=== PATIENT | female | born 1985 | race Caucasian/White ===

== ENCOUNTER 2024-11-11 11:50 | Outpatient (AMB) | payer OTHER, SELFPAY ==
--- NOTE | 2024-11-11 12:06 | MHC.OFFVIS ---
Intake Visit Reasons: 3 Months / migranes Allergies No Known Allergies Allergy (Verified 09/16/24 13:49) HPI Comments Details: 38 yo RH woman with migraine with migraine without aura, migraine equivalent syndrome type of symptoms, and restless legs syndrome. She was initially seen in June of 2024 with following description of symptoms: a. Dizziness: IT started a few months ago. It was happening almost daily. It was triggered by bending, turning, or getting up from sitting position. It caused a sense dizzinss like she was going to lose her balance. It helped by closing eyes. There was no associated pain, or confusion. No associated ear or eye symptoms.?b. Headaches: They were happening every day, all the time, usually worse in am, lasting hours to all day. OTC meds or meloxicam helped. In Dec, she was having severe pounding headache when she had right sided numbness and unsteadiness. She went to [facility] where she was admitted and had tests done. No diagnosis was made. She is presenting with management of idiopathic stabbing headaches and severe anxiety. She reports spontaneous episodes of sharp, needle-like headaches occurring suddenly, with durations often brief but intensely painful, exacerbated by stress. Previously, she took Depakote alongside other medications for bipolar disorder but discontinued due to significant weight gain. She recently increased the dosage of her current medication, which she believes has somewhat improved her headache symptoms over the last week. Her PTSD and anxiety severely impact her daily functions, particularly increasing her stress and headache frequency during travel. She experiences dizziness alongside her headaches. She is currently on propranolol for palpitations but has not used verapamil or received headache injections previously. [facility] Medical History (Updated 11/11/24 @ 12:17 by Darshan Barr MD) Bipolar disorder PTSD (post-traumatic stress disorder) Type II diabetes mellitus GERD (gastroesophageal reflux disease) Migraine equivalent syndrome Idiopathic peripheral neuropathy Carpal tunnel syndrome, bilateral upper limbs Insomnia RLS (restless legs syndrome) Depression with anxiety CE (obstructive sleep apnea) Obesity Migraine without aura Family History (Updated 09/16/24 @ 13:48 by Ana Jalloh MA) Father Headache Review of Systems Const Details: - Neurological: Reports chronic stabbing headaches, dizziness. - Psychiatric: Reports severe anxiety, PTSD. Physical Exam Neuro Other: Mental Status: Alert and oriented to person, place, and time. Normal attention. Normal spontaneous speech, fluency, and comprehension. No obvious issues with mood and memory. Affect is appropriate. Cranial Nerves: CN II: Visual jarvis full to confrontation, visual acuity intact. CN III, IV, : Pupils equal, round, reactive to light and accommodation. Extraocular movements are normal. CN V: Facial sensation is normal. CN VII: Facial movements symmetrical. CN VIII: Hearing intact to bedside conversation is normal. CN IX, X: Palate elevates symmetrically. CN XI: Shoulder shrug and head turn symmetrical. CN XII: Tongue midline without atrophy or fasciculations. Motor: Bulk and tone normal in all extremities. No significant muscle weakness in arms and legs. No drift. Reflexes: Deep tendon reflexes 2+ and symmetric. Plantar response down-going bilaterally. Coordination: Cudtlx-qd-vozx and eepd-qt-cxaj testing normal. No dysmetria. Gait and Station: No obvious gait abnormality. No ataxia or instability. Extrapyramidal: Full facial expressions and blinking. No rigidity. Movements are appropriate with no tremor or abnormality. Speech: Normal; no dysarthria or tremor. Assessment & Plan Assessment & Plan (1) Migraine without aura: Comment: Meds tried for migraine: Topiramate, amitriptyline, propranolol, Depakote (weight gain), Verapamil contraindicated due to propranolol she is taking Code(s): G43.009 - Migraine without aura, not intractable, without status migrainosus Category: Medical Qualifiers: Status migrainosus presence: without status migrainosus Intractability: not intractable Qualified Code(s): G43.009 - Migraine without aura, not intractable, without status migrainosus (2) RLS (restless legs syndrome): Code(s): G25.81 - Restless legs syndrome Category: Medical (3) Migraine equivalent syndrome: Code(s): G43.109 - Migraine with aura, not intractable, without status migrainosus Category: Medical (4) Idiopathic stabbing headache: Code(s): G44.85 - Primary stabbing headache Category: Medical Plan Impression: a: Migraine b: RLS Rec: a: DC Depakote b: Emgality 120mg once a month c: Increase ropinorole to 1mg at night d: If her insurance would not cover Emgality, 1 option would be to stopped propranolol take verapamil 122-40 mg Medications: New galcanezumab-gnlm (Emgality Pen) 120 mg subcut QMONTH 1 mL 2RF ropinirole administer 1-3 hours before bedtime 1 mg PO BEDTIME 90 tabs 0RF Discontinued ropinirole Discontinued Reason: Doctor's Order 0.5 mg PO BEDTIME 90 tabs 1RF Coding Level of Care Code Est Pt Level 4 (66238) Diagnoses Migraine without aura and without status migrainosus, not intractable G43.009 Status migrainosus presence: without status migrainosus Intractability: not intractable RLS (restless legs syndrome) G25.81 Migraine equivalent syndrome G43.109 Idiopathic stabbing headache G44.85
--- OUTSIDE RECORDS SUMMARY | 2024-11-11 14:23 | XMS_ITS | Encounter Summary ---
Author Organization [facility] Address [address] [place] [address] Care Team Providers Care Mill Roll Operator Name Role Phone John Liang MD Primary Care Provider [phone] Encounter Details Date Type Department Care Team ([facility] Contact Info) Description 11/06/2024 Results Follow-Up Internal Medicine - [place] [address] [place] [id number] Sarah Bowles MA Social History Tobacco Use Types Packs/Day Years Used Date Smoking Tobacco: Every Day Cigarettes 0.5 26.7 Started: 03/02/1998 Smokeless Tobacco: Never Alcohol Use Standard Drinks/Week Comments No 0 (1 standard drink = 0.6 oz pur e alcohol) Housing Instability Answer Date Recorde d Are you worried that in the next 2 months you may not have stable housing? No 04/26/2024 Food Access & Nutrition Answer Date Rec orded Do you have access to a vari ety of food including fruits and vegetables? Yes 04/26/2024 Access to Healthcare Answer Date Record ed Within the last 3 months, ho w many times did you visit the emergency department for your medical care? 0 04/26/2024 Health Literacy Answer Date Recorded How often do you need to hav e someone help you when you read instructions, pamphlets, or other written material from your doctor or pharmacy? Sometimes 04/26/2024 Caregiver: How often do you need to have someone help you when you read instructions, pamphlets, or other written material from your doctor or pharmacy? Not on file 04/26/2024 Financial Risk Answer Date Recorded How hard is it for you to pa y for the very basics like food, housing, medical care, and air conditioning / heating? Very hard 04/26/2024 Transportation Answer Date Recorded Has the lack of transportati on kept you from meetings, work, or from getting things needed for daily living? Yes Has the lack of transportati on kept you from medical appointments or from getting medications? Yes 04/26/2024 Social Isolation Answer Date Recorded How often do you feel lonely or isolated from th ose around you? Never 04/26/2024 Food Risk Answer Date Recorded Within the past 12 months we worried whether our food would run out before we got money to buy more. Sometimes true 025 Within the past 12 months th e food we bought just didn't last and we didn't have money to get more. Never true 04/26/2024 Dependent Care Answer Date Recorded Do you need help finding or paying for care for your loved ones. For example, child neurologist or elderly care for an older adult? No 04/26/2024 Education Answer Date Recorded Do you think completing more education or training, like finishing a GED, going to college, or learning a trade, would be helpful for you? No 04/26/2024 Employment and Income Answer Date Recor ded During the last four weeks, have you been actively looking for work? No 04/26/2024 Living Situation Answer Date Recorded What is your living situation? Unrecognized valu e 04/26/2024 Comments Unknown Sex and Gender Information Value Date Recorded Sex Assigned at Not on file Legal Sex Female 8:37 AM EST Gender Identity Not on file Sexual Orientation Not on file documented as of this encounter Plan of Treatment Not on file documented as of this encounter Visit Diagnoses Not on filedocumented in this encounter Additional Health Concerns Assessment Noted Time PHQ-9 Depression Total Score: 17 025 8:46 AM EDT documented as of this encounter Care Teams Mill Roll Operator Relationship Specialty Start Date End Date John Liang MD [address] [facility] [address] [place] [address] PCP - General 06/02/22 documented as of this encounter
--- OUTSIDE RECORDS SUMMARY | 2024-11-11 14:23 | XMS_ITS | Clinical Summary ---
Author Organization [address] [place] [address] [place] [id number] Phone Care Team Providers Care Bus Starter Name Role Phone John Liang MD Primary Care Provider [phone] Allergies Active Allergy Reactions Criticality Noted Date Comments Azithromycin GI intolerance 12/21/2023 Medications FREESTYLE LANCETS [facility] Use one lancet to check blood sugar twice a day 01/15/20 22 Active fluticasone propionate (FLONASE) 50 mcg/actuation nasal spray Amagon twice in each nostril daily. 01/11/20 22 Active cholecalciferol (VITAMIN D-3) 50 mcg (2,000 unit) capsule Take 1 capsule (2,000 Units total) by mouth. 08/29/19 24 Active medical supply, miscellaneous (MISCELLANEOUS MEDICAL SUPPLY [facility]) To take sugars twice daily 01/11/20 22 Active blood-glucose meter kit Use one device to check blood sugar twice a day 01/15/20 22 Active blood sugar diagnostic (FreeStyle Lite Strips) test strip USE DIRECTED TO CHECK BLOOD SUGAR TWICE DAILY 08/02/19 23 Active ibuprofen (ADVIL ORAL) Take by mouth as needed. Active Autolet (Accu-Chek Soft Dev Lancets) lancing device To take sugars twice daily 01/11/20 22 Active inhaler, assist devices (BREATHERITE VALVED MDI CHAMBER [facility]) 1 Each by Does not apply route as needed for Other (to use with rescue inhaler). 10/27/19 22 Active albuterol HFA (PROAIR HFA ; PROVENTIL HFA ; VENTOLIN HFA) 90 mcg/actuation inhalerIndicatio ns:Mild intermittent asthma without complication,Pal pitations,Type 2 diabetes mellitus with obesity Inhale 2 puffs by mouth every 4 (four) hours if needed for wheezing. 6.7 g 04/27/19 25 Active aspirin 81 mg EC tablet Take 1 tablet (81 mg total) by mouth 1 (one) time each day. 30 tablet 04/27/192025 Active Additional Information Patient not taking.Reported on 06/08/2024 fluconazole (DIFLUCAN) 150 mg tablet Take 1 tablet by mouth once. Take second tablet 3 days later if symptoms persist. 2 tablet 06/09/19 25 Active propranoloL (INDERAL) 40 mg tablet TAKE 1 TABLET BY MOUTH TWICE A DAY 180 tablet 10/25/19 25 Active atorvastatin (LIPITOR) 10 mg tablet TAKE 1 TABLET BY MOUTH EVERY DAY 90 tablet 10/25/19 25 Active fluticasone-salm eterol (Advair Diskus) 250-50 mcg/dose diskus inhaler Inhale 1 puff by mouth 2 (two) times a day. RINSE MOUTH AFTER USE 60 each 3 10/29/19 25 Active fluticasone-salm eterol (ADVAIR DISKUS) 250-50 mcg/dose diskus inhaler Inhale 1 puff by mouth 2 (two) times a day. Rinse mouth with water after use to reduce aftertaste and incidence of candidiasis. Do not swallow. 1 each 04/27/19 25 2024 Discontinued omeprazole (PriLOSEC) [address] capsule Take 1 capsule (20 mg total) by mouth 1 (one) time each day. 90 each 04/27/19 25 2024 propranoloL (INDERAL) 40 mg tablet Take 1 tablet (40 mg total) by mouth 2 (two) times a day. 60 each 04/27/19 25 2024 Discontinued atorvastatin (LIPITOR) 10 mg tablet TAKE 1 TABLET BY MOUTH EVERY DAY 90 tablet 07/27/19 25 2024 Discontinued Active Problems Problem Noted Date Diagnosed Date Atypical chest pain 10/13/2023 Overview (01/16/2024): Last Assessment & Plan: Sounds noncardiac in nature. Again ETT for restratification. Dyspnea on effort 10/13/2023 Overview (01/16/2024): Last Assessment & Plan: Likely multifactorial. Exercise tolerance test to assess functional capacity. If normal, would recommend a graduated exercise program. Palpitations 10/06/2023 Overview (01/16/2024): - Holter monitors in 2016, 2021, and more recently in March 2023 were unremarkable Last Assessment & Plan: My suspicion is that this is subjective awareness of sinus tachycardia which is likely due to a combination of factors including ongoing tobacco use, deconditioning, possible contribution from anxiety since some of her palpitation symptoms tend to be triggered by stress. Given family history, we are setting her up for an exercise tolerance test for restratification but ultimately, there is no magic fix for any of this. I reviewed that it can often take a long time with dedicated effort to try and improve conditioning. Ultimately, would recommend discontinuation entirely of tobacco use and marijuana use. As a trial, she could even try weaning herself off of caffeine just to reestablish a baseline of her symptoms. Would also recommend regular aerobic exercise. However, I think it would be fine to wait until after the stress test to start an exercise program. COVID-19 10/25/2021 Overview (01/16/2024): First Dx: 02/19/2020 Vitamin D deficiency 07/22/2020 Hyperlipidemia 04/29/2020 Overview (01/16/2024): Last Assessment & Plan: Although I have low suspicion that her current symptoms are cardiac in nature given relatively young age, and atypical history, she is at risk for future cardiovascular events over her lifetime. Her 10-year risk is probably still reasonably low though with smoking, it can be unpredictable. However, I reviewed that her risk factors are entirely reversible at this point. However she needs to stop smoking, stop using marijuana, focus on diet and exercise in a more structured way. I do not feel strongly about continuing statins at this point-especially if they are causing any sort of side effect but ideally, should try to follow a Mediterranean style diet. There seem to be social/socioeconomic factors that prevent her from accessing healthy foods. May need to consider use of food pantry's or other resources in the community. 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 ([facility] V24) 12/14/2018 PTSD (post-traumatic stress disorder) 12/14/2018 Encounters Date Type Department Care Team Description 11/06/2024 Results Follow-Up Internal Medicine - [address] [place] [address] Sarah Bowles MA from Last 3 Months Immunizations Immunization Administration Dates Next Due Influenza Quadravalent, MDCK , 0.5ml, preservative free (Flucelvax) 6mo and older 03/02/2020 Pneumococcal polysaccharide 23 valent (Pneumovax 23) 2yo and older 03/02/2020 Surgical History Surgery Date Site/Laterality Comments OTHER SURGICAL HISTORY PROCEDURE: DENIES PREVIOUS SURGERY Medical History Medical History Date Comments Mild intermittent asthma, uncomplicated DX:Mild intermittent asthma, uncomplicated Family History Medical History Relation Name Comments Other: luiza Brother 1 No Known Problems Brother 2 Arthritis Father COPD Father Heart attack Father at 58 Heart failure Father Hypertension Father Other: TIA Father Sleep apnea Father CABG Father's side Heart attack Father's side Heart attack Grandparent Paternal Grandfather Heart failure Maternal Grandfather Lung cancer Maternal Grandfather stomach cancer; SCC Lung cancer Maternal Grandmother Hypertension Mother Ovarian cancer Other Grand mother Relation Name Status Comments Brother 1 Alive Brother 2 Alive Father Father's side Alive Grandparent Paternal Grandfather Maternal Grandfather Maternal Grandmother Mother Other Alive The patient has chosen to decline gentic testing on 06/2020 Social History Tobacco Use Types Packs/Day Years [...] for your loved ones. For example, child care sitter or elderly care for an older adult? [...] on file Sexual Orientation Not on file Obstetrics History Last Filed Vital Signs Vital Sign Reading Time Taken Comments Blood Pressure 138/82 06/08/2024 1:04 PM EDT Pulse 92 06/08/2024 1:04 PM EDT Temperature 36.3 C (97.4 F) 06/08/2024 1:04 PM EDT Respiratory Rate - - Oxygen Saturation 98% 06/08/2024 1:04 PM EDT Inhaled Oxygen Concentration - - Weight 93.3 kg (205 lb 11.2 oz) 025 10:17 AM EDT Height 152.4 cm (5') 03/18/2024 10:00 AM EST Body Mass Index 40.17 03/18/2024 10:00 AM EST Plan of Treatment Health Maintenance Due Date Last Done Comments Breast Cancer Screening 1984 Diabetes: Annual Foot Exam 1994 Hepatitis B Vaccines (1 of 3 - 19+ 3-dose series) 11/10/2003 Cervical Cancer Screening: P ap Smear 2005 HPV Vaccines (1 - 3-dose SCD M series) 11/10/2011 Pneumococcal Vaccine: Pediatrics (0 to 5 Years) and At-Risk Patients (6 to 49 Years) (2 of 2 - PCV) 03/02/2021 03/02/2020 HIV Screening 01/15/2022 Hepatitis C Screening 01/15/2022 Diabetes: Annual Urine Albumin-Creatinine Ratio (uACR) 06/03/2023 06/02/2022 Diabetes: Annual Retina Eye Exam 01/18/2024 01/17/2023 Diabetes: Blood Sugar Contro l Test (HGBA1C) 01/23/2024 07/24/2023, 07/24/2023 Diabetes: Annual GFR (Glomerular Filtration Rate) 04/23/2024 04/24/2023 COVID-19 Vaccine (2024-2 6 season) 2024 10/02/2021, 07/02/2020, 06/04/2020 Influenza Vaccine (#1) 2024 03/02/2020 Social Influencers of Health Screening 04/26/2025 04/26/2024 DTaP,Tdap,and Td Vaccines (3 - Td or Tdap) 11/23/2027 11/22/2017, 01/03/2012 Cholesterol Screening (Lipid Panel) 07/23/2028 07/24/2023, 07/24/2023 RSV Immunization Adult Patients (1 - 1-dose 75+ series) 11/10/2059 Depression Screening Completed 04/26/2024 HIB Vaccines Aged Out No longer eligi ble based on patient's age to complete this topic Hepatitis A Vaccines Aged Out No long er eligible based on patient's age to complete this topic IPV Vaccines Aged Out No longer eligi ble based on patient's age to complete this topic MMR Vaccines Aged Out No longer eligi ble based on patient's age to complete this topic Meningococcal ACWY Vaccine Aged Out N o longer eligible based on patient's age to complete this topic Meningococcal B Vaccine Aged Out No l onger eligible based on patient's age to complete this topic RSV Immunization Patients Under 20 months Aged Out No longer eligible b ased on patient's age to complete this topic Varicella Vaccines Aged Out No longer eligible based on patient's age to complete this topic Procedures Procedure Name Priority Date/Time Associated Diagnosis Comments THYROID STIMULATING HORMONE Routine 10/17/2024 11:48 AM EDT Mild intermittent asthma without complication Palpitations Type 2 diabetes mellitus with obesity (CMS/HCC V24, CMS/[facility] V28) CBC WITH AUTO DIFFERENTIAL Routine 10/17/2024 11:48 AM EDT Mild intermittent asthma without complication Palpitations Type 2 diabetes mellitus with obesity (CMS/HCC V24, CMS/HCC V28) CBC AND DIFFERENTIAL Routine 10/17/2024 11:48 AM EDT Mild intermittent asthma without complication Palpitations Type 2 diabetes mellitus with obesity (CMS/HCC V24, CMS/[facility] V28) VITAMIN D 25 HYDROXY Routine 10/17/2024 11:48 AM EDT Mild intermittent asthma without complication Palpitations Type 2 diabetes mellitus with obesity (CMS/[facility] V24, [facility] V28) Brain TIA Fibromyalgia HEMOGLOBIN A1C Routine 07/24/2023 LIPID PANEL Routine 07/24/2023 ANNUAL BMP BLOOD TEST Routine 04/24/2023 DIABETES EYE EXAM Routine 01/17/2023 URINE ALBUMIN CREATININE RATIO Routine 06/02/2022 from Last 3 Months or Most Recently Relevant to Health Maintenance Results * (ABNORMAL) CBC auto differential (10/17/2024 11:48 AM EDT) WBC 8.7 4.8 - 10.8 K/mcL LAB HEMETOLOGY METHOD 10/17/2024 2:20 PM EDT [facility] RBC 5.10(H) 3.80 - 4.80 M/mcL LAB HEMETOLOGY METHOD 10/17/2024 2:20 PM EDT [facility] Hemoglobin 14.8 11.5 - 16.0 g/dL LAB HEMETOLOGY METHOD 10/17/2024 2:20 PM EDT [facility] Hematocrit 44.0 35.0 - 47.0 % LAB HEMETOLOGY METHOD 10/17/2024 2:20 PM EDT [facility] MCV 86.4 79.0 - 98.0 FL LAB HEMETOLOGY METHOD 10/17/2024 2:20 PM EDT [facility] MCH 29.1 27.0 - 32.0 pcg LAB HEMETOLOGY METHOD 10/17[facility]24 [facility] MCHC 33.6 32.0 - 37.0 g/dL LAB HEMETOLOGY METHOD 10/17/2024 2[facility] RDW 12.9 11.0 - 15.0 % LAB HEMETOLOGY METHOD 10/17/2024 2:20 PM EDT [facility] Platelets 300 130 - 400 K/mcL LAB HEMETOLOGY METHOD 10/17/2024 2:20 PM EDT [facility] MPV 10.2 7.0 - 11.0 FL LAB HEMETOLOGY METHOD 10/17/2024 2:20 PM EDT [facility] NRBC 0.0 <1.0 % LAB HEMETOLOGY METHOD 10/17/2024 2:20 PM EDT [facility] NRBC Absolute 0.00 <0.10 K/mcL LAB HEMETOLOGY METHOD 10/17/2024 2:20 PM EDT [facility] Neutrophils Relative 48.5 % LAB HEMETOLOGY METHOD 10/17/2024 2:20 PM EDT [facility] Lymphocytes Relative 44.0 % LAB HEMETOLOGY METHOD 10/17/2024 2:20 PM EDT [facility] Monocytes Relative 4.1 % LAB HEMETOLOGY METHOD 10/17/2024 2:20 PM EDT [facility] Eosinophils Relative 2.7 % LAB HEMETOLOGY METHOD 10/17[facility]2024 [facility] Basophils Relative 0.5 % LAB HEMETOLOGY METHOD 10/17/2024 2:20 PM EDT [facility] Immature Granulocytes Relative 0.2 % LAB HEMETOLOGY METHOD 10/17/2024 2:20 PM EDT [facility] Neutrophils Absolute 4.23 1.50 - 7.00 K/mcL LAB HEMETOLOGY METHOD 10/17/2024 2:20 PM EDT [facility] Lymphocytes Absolute 3.84 1.00 - 5.00 K/mcL LAB HEMETOLOGY METHOD 10/17/2024 2:20 PM EDT [facility] Monocytes Absolute 0.36 0.20 - 1.00 K/mcL LAB HEMETOLOGY METHOD 10/17/2024 2:20 PM EDT [facility] Eosinophils Absolute 0.24 0.00 - 0.50 K/mcL LAB HEMETOLOGY METHOD 10/17/2024 2:20 PM EDT [facility] Basophils Absolute 0.04 0.00 - 0.20 K/mcL LAB HEMETOLOGY METHOD 10/17/2024 2:20 PM EDT [facility] Immature Granulocytes Absolute 0.02 0.00 - 0.03 K/[facility] LAB HEMETOLOGY METHOD 10/17/2024 2:20 PM EDT [facility] Blood Venous blood specimen / Unknown Venipuncture / Unknown 10/17/2024 11:48 AM EDT 10/17/2024 11:48 AM EDT us John Liang MD LAB BLOOD ORDERABLES Final Resul t Performing Organization Address City/[facility]/ZIP Co de Phone Number [facility] [address] [place] [address], [place] [phone] * Vitamin D 25 hydroxy (10/17/2024 11:48 AM EDT) [facility] Vit D, 25-Hydroxy 31.6 30.0 - 80.0 ng/mL LAB CHEMISTRY METHOD 10/17/2024 2:36 PM EDT [facility] Blood Venous blood specimen / Unknown Venipuncture / Unknown 10/17/2024 11:48 AM EDT 10/17/2024 11:48 AM EDT us John Liang MD LAB BLOOD ORDERABLES Final Resul t [facility] [address] [place] [address], [place] [phone] * Thyroid stimulating hormone (10/17/2024 11:48 AM EDT) [facility] TSH 2.65 0.40 - 4.00 mcIU/mL LAB CHEMISTRY METHOD 10/17/2024 2:36 PM EDT [facility] Blood Venous blood specimen / Unknown Venipuncture / Unknown 10/17/2024 11:48 AM EDT 10/17/2024 11:48 AM EDT Result [facility] John Liang MD LAB BLOOD ORDERABLES Final Resul t [facility] [address] [place] [address], [place] [phone] * (ABNORMAL) Hemoglobin A1c (07/24/2023) [facility] Hemoglobin A1C 8.2(A) <=6.5 % Blood Venous blood specimen / Unknown Result [facility] Joy MADRID LAB BLOOD ORDERABLES Lucy l Result * (ABNORMAL) Lipid panel (07/24/2023) [facility] LDL/HDL Ratio 4 0 - 4 Triglycerides 119 0 - 150 mg/dL Cholesterol 228(A) 0 - 200 mg/dL HDL 57 >=40 mg/dL LDL Cholesterol 148(A) 0 - 100 mg/dL Blood Venous blood specimen / Unknown Result [facility] Gopi Hamilton MD LAB BLOOD ORDERABLES Lucy l Result * Annual BMP Blood Test (04/24/2023) [facility] Annual BMP Blood Test Abstracted Result [facility] [employer] [employer] Final Result * Diabetes Eye Exam (01/17/2023) [facility] Diabetes: Annual Retina Eye Exam Abstracted Result [facility] [employer] Final Result * Urine Albumin Creatinine Ratio (06/02/2022) [facility] Urine Albumin Creatinine Ratio Abstracted Result [facility] [employer] [employer] Final Result from Last 3 Months or Most Recently Relevant to Health Maintenance Insurance [facility] Care Teams Bus Starter Relationship Specialty Start Date End Date John Liang MD [address] [facility] [address] [place] [address] PCP - General 06/02/22
--- OUTSIDE RECORDS SUMMARY | 2024-11-11 14:23 | XMS_ITS | Clinical Summary ---
Author Organization [facility] Address [address] [place] [address] Care Team Providers Care Bar Staff Name Role Phone Unavailable Primary Care Provider Unavailabl e Source Comments PLEASE NOTE, if this patient is a minor, it may be UNLAWFUL to discuss sensitive information that is contained in these records (such as FAMILY PLANNING, MENTAL HEALTH or SUBSTANCE ABUSE) with the minor patient's parent or other person without the patient's specific authorization.[facility] Allergies No known active allergies Medications amoxicillin (AMOXIL) 500 mg capsuleIndicati ons:Tooth infection Take 1 Capsule by mouth 3 (three) times daily 12 Capsule 1 10/07/2020 Active clindamycin HCL (CLEOCIN) 300 mg capsuleIndicati ons:Tooth infection Take 1 Capsule by mouth 3 (three) times daily 21 Capsule 10/15/2020 Active Active Problems No known active problems Social History Tobacco Use Types Packs/Day Years Used Date Smoking Tobacco: Every Day Cigarettes Social Connections Answer Date Recorded Connectedness 0 10/26/2023 Financial Resource Strain Answer Date R ecorded Financial Resource Strain 0 2021 Stress Answer Date Recorded Stress 0 07/19/2021 Physical Activity Answer Date Recorded Physical Activity 0 07/19/2021 Food Insecurity Answer Date Recorded Food 0 11/02/2023 Transportation Needs Answer Date Record ed Transportation 0 07/19/2021 Housing Stability Answer Date Recorded Housing 0 07/19/2021 Safety and Environment Answer Date Jonathan rded Safety 0 07/19/2021 Utilities Answer Date Recorded Utilities 0 07/19/2021 Employment Answer Date Recorded Stress 0 10/26/2023 Comments Unknown Sex and Gender Information Value Date Recorded Sex Assigned at Not on file Legal Sex Female 8:31 AM PDT Gender Identity Not on file Sexual Orientation Not on file Last Filed Vital Signs Vital Sign Reading Time Taken Comments Blood Pressure 131/92 11/28/2022 9:07 AM EDT Pulse 92 11/28/2022 9:07 AM EDT Temperature - - Respiratory Rate - - Oxygen Saturation - - Inhaled Oxygen Concentration - - Weight - - Height - - Body Mass Index - - Plan of Treatment Health Maintenance Due Date Last Done Comments Anxiety Screening 1984 Dental Perio Charting 1984 Dental Prophy 1984 Diabetes Screening 1984 HPV Screening 1984 Hepatitis C Screening 1984 Pap + HPV 1984 Tobacco Cessation Counseling (#1) 1984 Tobacco Screening 1984 HIV Screening 11/10/1999 Relationship Safety Screening/Counseling 11/10/1999 Imm-DTaP/Tdap/Td (1 - Tdap) 11/10/2003 Imm-Hepatitis B (1 of 3 - 19 + 3-dose series) 11/10/2003 Imm-Pneumococcal (1 of 2 - PCV) 11/10/2003 Cervical Cancer Screening 2005 Pap Smear 2005 Imm-HPV (1 - 3-dose SCDM series) 11/10/2011 Dental BW 07/21/2022 07/19/2021 Hypertension Screening (#1) 11/28/2023 Dental Examination 12/01/2023 11/28/2022, 07/19/2021 Alcohol and Drug Screen 02/07/2024 Depression Annual Screen 02/07/2024 [id number] ( season) 2024 Imm-Influenza (#1) 2024 Dental FMX/Pano 12/01/2027 11/28/2022, 07/19/2021 Cervical Ablation/Cold-Knife Conization Discontinued Cervical Cryotherapy Discontinued Colposcopy Discontinued Endometrial Biopsy Discontinued Excision/Leep Discontinued HPV Genotyping Discontinued Vaginal Pap Discontinued Vulvoscopy Discontinued Procedures Procedure Name Priority Date/Time Associated Diagnosis Comments PANORAMIC RADIOGRAPHIC IMAGE Routine 11/28/2022 9:00 AM EDT Asymptomatic periapical periodontitis Encounter for dental examination PERIODIC ORAL EVALUATION ESTABLISHED PATIENT Routine 11/28/2022 9:00 AM EDT Asymptomatic periapical periodontitis Encounter for dental examination Full INTRAORAL - COMP SERIES OF RADIOGRAPHIC IMAGES Routine 07/19/2021 11:00 AM EDT Periodontitis from Last 3 Months or Most Recently Relevant to Health Maintenance [place]
--- OUTSIDE RECORDS SUMMARY | 2024-11-11 14:23 | XMS_ITS ---
Author Name [facility] Organization Unknown Care Team Organization Name Specialty Phone Email Start Date End Da te [facility] [address] Moran APRN Primary Care 06/13/2022 09/25/2023 [facility] Lidia Iniguez Primary Care 12/14/2021
== END 2024-11-11 12:20 | disposition home or self-care (01) ==
LOC: HO.HSM 11:50
PROVIDERS: PCP Internal Medicine; Visit Provider Psychiatry & Neurology Neurology
DX: G43.009 Migraine without aura, not intractable, without status migrainosus (principal); G25.81 Restless legs syndrome; G43.109 Migraine with aura, not intractable, without status migrainosus; G44.85 Primary stabbing headache
CPT/HCPCS: 99214

== ENCOUNTER → 2024-11-11 11:50 | Outpatient (BNVA) | payer OTHER, SELFPAY | PROVIDERS: PCP Internal Medicine; Visit Provider Psychiatry & Neurology Neurology | DX: G43.009 Migraine without aura, not intractable, without status migrainosus (principal); G43.109 Migraine with aura, not intractable, without status migrainosus; G25.81 Restless legs syndrome; G44.85 Primary stabbing headache; F41.9 Anxiety disorder, unspecified; F43.10 Post-traumatic stress disorder, unspecified | CPT/HCPCS: 99212 ==

== ENCOUNTER 2024-12-12 11:58 | Outpatient (AMB) | payer OTHER, SELFPAY ==
--- NOTE | 2024-12-12 12:05 | MHC.OFFVIS ---
Vital Signs 12/12/24 12:21 Height 5 ft Weight 202 lb BMI 39.4 BP 122/88 Blood Pressure Location Rt brachial Position Sitting Respiration 16 Pulse 68 Pulse Source Pulse Oximeter Pulse Oximetry (%) 98 Oxygen Delivery Method Room Air Intake Visit Reasons: 4 weeks Network Communications Engineer Required: No Accompanied by: Mother Allergies No Known Allergies Allergy (Verified 12/12/24 12:22) HPI Comments Details: Ayesha is a 39-year-old female patient with a past medical history of bipolar disorder, PTSD, type 2 diabetes, neuropathy, insomnia, restless legs, and obesity who follows in the clinic for her headaches. According to the most recent documentation, she was seen by Dr. Barr in November of 2024 at which time she reported dizziness that was occurring almost daily triggered by bending, turning, or getting up from a seating position. Closing her eyes was helpful. There was no association with pain at that time. She had no associated ear or eye symptoms. They also discussed headaches which were occurring on average every day and lasting all day. They were typically worse in the morning lasting hours up to the entire duration of the day. Diagnosis was given for presumed idiopathic stabbing headaches and severe anxiety. She had reported spontaneous episodes of sharp needle-like headaches occurring suddenly with durations often brief but intense painful and exacerbated by stress. She was taking Depakote for her psychiatric regimen though this was not beneficial to her headaches. It has been recommended that she stopped the Depakote and start a trial of Emgality as well as increase her ropinirole at nighttime to improve her sleep quality. She tells me today that she started the Emgality injections on 11/18/2024. She has not noticed any sideffects but she has not seen any improvements yet in her headaches. She is currently experiencing headacehs 6 out of 7 days per week and they can often last the majority of the day. Stress tends to trigger her headaches. Her head pain is often holocephalic but can be sharp and shooting to the bifrontal and temporal areas. Pain can be pulsating or sharp/shooting. With more intense pain she has light and sound sensitivity as well as nausea (for about half of her headaches). No autonomic symptoms with her shooting and stabbing pains. She denies vision changes with any of her headaches. She reports that her sleep is poor. She was diagnosed in the past with CE and she had used a cpap in the past but there was a recall on the machine. When she wanted to re-start she was not able to go through a new sleep study due to social constraints. She also has had ongoing RLS for which ropinerole in the past has been helpful but more recently has not been helping even with the higher dose of ropinerole. She also notes a significant amount of brain fog and inability to concentrate.This has been occurring over the course of several years. Prior medication trials: Depakote- No benefit and weight gain - No longer taking Propranolol 40mg twice daily - Currently taking Emgality- Prior workup has included: MRI brain without contrast 12/2023: Normal brain MRI C-spine MRI without rcxyiema90/2024: Straightening of the typical cervical lordosis with superimposed disc bulges but no high-grade stenosis or cord/nerve compression PFSH Medical History (Updated 12/12/24 @ 12:47 by Deepali Montoya CNP) Bipolar disorder PTSD (post-traumatic stress disorder) Type II diabetes mellitus GERD (gastroesophageal reflux disease) Migraine equivalent syndrome Idiopathic peripheral neuropathy Carpal tunnel syndrome, bilateral upper limbs Insomnia RLS (restless legs syndrome) Depression with anxiety CE (obstructive sleep apnea) Obesity Migraine without aura Family History (Updated 09/16/24 @ 13:48 by Ana Jalloh MA) Father Headache Review of Systems Const All systems reviewed & are unremarkable except as noted in HPI and below Physical Exam Const Orientation/consciousness: patient oriented x3 HEENT Head: Yes normal to inspection Eyes Visual Puente: normal visual puente by confrontation Alignment and Position: alignment normal Periorbital: periorbital findings normal Eyelids: Yes eyelids normal Pupils: Equal, round and reactive pupils present EOM: EOMs intact bilaterally Back/Spine/Pelvis Other: Trapezius trigger points bilaterally. Bilateral occipital notch tenderness. Neuro General: patient oriented x3, gait normal, moves all extremities and CN's II-XI intact bilaterally Cranial nerves: Yes Equal, round and reactive pupils present Assessment & Plan Assessment & Plan (1) CE (obstructive sleep apnea): Code(s): G47.33 - Obstructive sleep apnea (adult) (pediatric) Category: Medical (2) RLS (restless legs syndrome): Code(s): G25.81 - Restless legs syndrome Category: Medical (3) Snoring: Code(s): R06.83 - Snoring Category: Medical (4) Bilateral occipital neuralgia: Code(s): M54.81 - Occipital neuralgia Category: Medical (5) Fatigue: Code(s): R53.83 - Other fatigue Category: Medical (6) Muscle pain, myofascial: Code(s): M79.18 - Myalgia, other site Category: Medical Plan Ayesha is a 39-year-old female patient with a past medical history of bipolar disorder, PTSD, type 2 diabetes, neuropathy, insomnia, restless legs, and obesity who follows in the clinic for her headaches. Her exam is significant for bilateral trapezius tenderness and tenderness over the occipital notches bilaterally. I suspect that her headaches are tension related but more than likely related to her untreated sleep apnea. She is open to doing a repeat sleep study and treatment of her sleep apnea. I suspect that this is contributing to her headaches, fatigue, restless legs symptoms, as well as her memory difficulties that she reports today. We discussed this relationship in depth. For now, I will not make any changes to her medications until we have her sleep study back. We will follow up after her sleep study. We could in the interim consider trigger point and occipital nerve blocks if her pain becomes severe. She would like to hold on this for now. -In lab sleep study -Continue Ropinerole 1mg nightly for now -Continue Emgality injections for now -Continue muscle relaxers as preascribed by physiatry -Heat and massage at home -Consider trigger point and occipital nerve blocks Orders: Orders RT PSG in-lab sleep study Today G25.81 - Restless legs syndrome, G47.33 - Obstructive sleep apnea (adult) (pediatric), R06.83 - Snoring, R53.83 - Other fatigue Medications: Changed From galcanezumab-gnlm (Emgality Pen) 120 mg subcut QMONTH 3 mL 3RF To galcanezumab-gnlm (Emgality Pen) 120 mg subcut QMONTH 3 mL 3RF 3 months Refilled galcanezumab-gnlm (Emgality Pen) 120 mg subcut QMONTH 3 mL 3RF Coding Level of Care Code Est Pt Level 4 (51131) Diagnoses CE (obstructive sleep apnea) G47.33 RLS (restless legs syndrome) G25.81 Snoring R06.83 Bilateral occipital neuralgia M54.81 Fatigue R53.83 Muscle pain, myofascial M79.18
[2024-12-12 12:21] VITALS: BP 122/88; PULSE 68; RESP 16; O2SAT 98; BMI 39.4
--- OUTSIDE RECORDS SUMMARY | 2024-12-12 14:57 | XMS_ITS | Data Portability ---
Author Organization [facility]AIM[facility]nn [facility], [address] Address [address] [place] [address] Assessment No assessment recorded. Plan of Treatment Reminders Order Date Submit Date Provider Last Modified By Organization Details Last Modified Time Details Appointments None recorded. Lab glucose, fingersti ck, blood 2022 023 ROCK [facility] [address], [address] [place], [address], 3 14:10:00 microorga nism identific ation, unspecifi ed specimen 2022 023 [email or web address] [facility], [address] [place] [address], [place], [address], 3 13:09:54 glucose, fingersti ck, blood 2022 023 [email or web address] [facility] [address], [address] [place], [address], 3 12:38:55 Referral None recorded. Procedures None recorded. Surgeries None recorded. Imaging electroca rdiogram 2022 023 [email or web address] [facility] [address], [address] [place], [address], 3 12:43:47 Medication Orders doxycycli ne hyclate 100 mg capsule 2022 023 [facility]acy #[id number], [phone] [place], [address], 3 13:05:51 amoxicill in 875 mg tablet 2022 023 [email or web address] [facility]/Pharmacy #[id number], [phone] [place], [address], 3 14:08:06 aspirin 81 mg chewable tablet 2022 023 [email or web address] Not available 12:39:32 Patient TargetsNo targets recorded. Patient Instructions Encounter Date Encounter Id Patient Instructions Last Modified By Organization Details Last Modified Time 10/17/2022 [id number] cellulitis: care instructions [email or web address] Not available 10/17/2022 13:05:49 skin abscess: care instructions [email or web address] Not available 10/17/2022 13:05:49 diabetic diet [email or web address] Not available 0 10/17/2022 13:10:49 Learning About Carbohydrate (Carb) Counting and Eating Out When You Have Diabetes Not available 10/17/2022 13:10:49 type 2 diabetes: care instructions [email or web address] Not available 10/17/2022 13:10:49 Apply a warm compress to the affected area for 15-20 minutes at a time up to 4 times a day. Take the antibiotics as prescribed. Take an over the counter probiotic as prescribed. See printed instructions. You will be contacted when your lab report returns. Do not squeeze or manipulate the infected area. Return to [facility] in 2 days for re-evaluation. If a significant collection of pus develops you will need to have the area incised and drained. Your blood sugar is 221. Try to follow a diabetic diet and check your blood sugars regularly. Follow-up with your doctor as soon as possible. Seek Emergency Medical evaluation for any worsening symptoms, particularly for high fever, shaking chills, increased pain/redness/swel ling, pus collection requiring drainage. [email or web address] Not available 10/17/2022 13:09:24 Reason for Referral None Reported. Results Created Date Observation Date Name Description Value Unit Range Abnormal Flag Note LastModifiedBy Organization Detail LastModifiedTime 06/04/25 2207/09/2022 gluco se, finge rstic k, blood blood sugar - non fasting 277 mg/dL 80-140 = normal Not Available [address] [place], [address], 07/09/2022 12:36:08 07/10/19 23 07/09/2022 gluco se, finge rstic k, blood blood sugar - fasting mg/dL 80-125 = normal Not Available [address] [place], [address], 07/09/2022 12:36:08 10/18/1910/20/2022 ANAER OBIC AND AEROB IC CULTU RE aerobic culture Final report abnormal Not Available [facility] ([facility]) [address], [place], [address], 10/22/2022 08:08:15 10/18/1910/20/2022 ANAER OBIC AND AEROB IC CULTU RE result 1 COMMEN T abnormal Staph yloco ccus simul ans Based on susce ptibi lity to oxaci llin this isola te would be susce ptibl e to: *Peni cilli nase- stabl e penic illin s, such as: Cloxa cilli n, Diclo xacil mart, Nafci llin *Beta -lact am combi natio n agent s, such as: Amoxi cilli n-cla vulan ic acid, Ampic illin -sulb actam , Piper acill in-ta zobac ballesteros *Oral cephe ms, such as: Cefac rebecca, Cefdi gayathri, Cefpo doxim e, Cefpr ozil, Cefur oxime , Cepha lexin , Lorac arbef *Pare ntera l cephe ms, such as: Cefaz maryse, Cefep carlos, Cefot axime , Cefot angelina, Cefta rolin e, Cefti zoxim e, Ceftr iaxon e, Cefur oxime *Carb apene ms, such as: Dorip enem, Ertap enem, Imipe nem, Merop enem Heavy growt h Not Available [facility] ([facility]) [address] [facility], [place], [address], 10/22/2022 08:08:15 10/18/19 23 10/20/2022 ANAER OBIC AND AEROB IC CULTU RE result 2 COMMEN T abnormal Beta hemol ytic Strep tococ cus, group B Heavy growt h Penic illin and ampic illin are drugs of choic e for treat ment of beta- hemol ytic strep tococ svetlana infec tions . Susce ptibi lity testi ng of penic illin s and other beta- lacta m agent s appro mo by the FDA for treat ment of beta- hemol ytic strep tococ svetlana infec tions need not be perfo rmed routi violet becau se nonsu scept ible isola edmond are extre laura rare in any beta- hemol ytic strep tococ cus and have not been repor enmanuel for Strep tococ cus pyoge shawn (grou p A). (CLSI ) Not Available [facility] ([facility]) [address], [place], [address], 10/22/2022 08:08:15 10/18/1910/20/2022 ANAER OBIC AND AEROB IC CULTU RE antimicrobia l susceptibili ty Commen t S = Susce ptibl e; I = Inter media te; R = Resis tant P = Posit krupa; N = Negat krupa MICS are expre ssed in micro grams per mL Antib iotic RSLT# 1 RSLT# 2 RSLT# 3 RSLT# 4 Cipro floxa logan S Clind amyci n S Eryth romyc in S Genta micin S Levof loxac in S Moxif loxac in S Oxaci llin S Penic illin R Rifam pin S Tetra cycli ne S Trime thopr im/Hollis lfa S Vanco mycin S Not Available [facility] ([facility]) [address], [place], [address], 10/22/2022 08:08:15 10/18/19 23 10/22/2022 ANAER OBIC AND AEROB IC CULTU RE anaerobic culture Final report Not Available [facility] ([facility]) [address], [place], [address], 10/22/2022 08:08:15 10/18/19 23 10/22/2022 ANAER OBIC AND AEROB IC CULTU RE result 1 COMMEN T No anaer obic growt h in 72 hours . Not Available [facility] ([facility]) [address], [place], [address], 10/22/2022 08:08:15 10/18/19 23 10/17/2022 gluco se, finge rstic k, blood blood sugar - non fasting 221 mg/dL 80-140 = normal Not Available [facility] [address] [place], [address], 10/17/2022 13:10:45 10/18/19 23 10/17/2022 gluco se, finge rstic k, blood blood sugar - fasting mg/dL 80-125 = normal Not Available [facility] [address] [place], [address], 10/17/2022 13:10:45 07/10/19 23 07/09/2022 elect rocar diogr am No observ ation record ed. ROCK [facility] [address] [place], [address], 07/09/2022 14:20:16 07/10/19 elect rocar diogr am No observ ation record ed. ROCK [facility] [address] [place], [address], 07/09/2022 13:02:03 Result Notes None recorded. Problems Name Problem SNOMED Code Status Onset Date Resolution Date Notes Provider Name and Address Organization Details Recorded Time Diabetes mellitus 43547150 Active 2022 CHIVO DEPINTO null, PA - [facility] 3 12:15:40 Asthma 484782788 Active 2022 CHIVO DEPINTO null, PA - [facility] 3 12:16:32 Sleep apnea 74018749 Active 2022 CHIVO DEPINTO null, PA - [facility] 3 12:16:36 Fibromyalgia 664085992 Active 2022 CHIVO DEPINTO null, PA - [facility] 3 12:16:41 Bipolar disorder 84922366 Active 2022 CHIVO DEPINTO null, PA - [facility] 3 12:16:45 Restless legs syndrome 10655676 Active 2022 CHIVO DEPINTO null, PA - [facility] 3 12:16:55 Cardiac arrhythmia 155395122 Active 2022 CHIVO DEPINTO null, PA - [facility] 3 12:17:46 Neuropathy 097101459 Active 2022 CHIVO DEPINTO null, PA - [facility] 3 12:19:43 Problem Notes None recorded. Medical Equipment None Reported. Allergies Allergen ID Allergen Name Allergen Category Reaction Reaction Severity Criticality Documentation Date Start Date Code Code System Note Provider Name and Address Organization Details Recorded Time 487975 azithromy logan medicatio n diarrhea Not available Not available 07/09/2022 97887 RxNorm CHIVO DEPINTO null, PA - [facility] 3 12:16:19 Medications Name Sig Start Date Stop Date Status Note LastModified by Organization Details LastModified Time prednisone 10 mg tablet PLEASE SEE ATTACHED FOR DETAILED DIRECTION S 07/09 completed Not Available Not Available Not Available doxycycline hyclate 100 mg capsule TAKE 1 CAPSULE BY MOUTH TWICE A DAY FOR 7 DAYS active Not Available Not Available No t Available FreeStyle Lancets 28 gauge USE DIRECTED TO CHECK BLOOD SUGAR TWICE DAILY active Not Available Not Available No t Available doxycycline monohydrate 100 mg tablet TAKE 1 TABLET BY MOUTH TWICE A DAY FOR 10 DAYS 07/09 completed Not Available Not Available Not Available propranolol 10 mg tablet TAKE 1 TABLET BY MOUTH TWICE A DAY active Not Available Not Available No t Available ofloxacin 0.3 % ear drops PLEASE SEE ATTACHED FOR DETAILED DIRECTION S 07/09 completed Not Available Not Available Not Available amoxicillin 875 mg tablet TAKE 1 TABLET BY MOUTH EVERY 12 HOURS FOR 7 DAYS active Not Available Not Available No t Available Advair Diskus 250 mcg-50 mcg/dose powder for inhalation TAKE 1 PUFF BY MOUTH TWICE A DAY active Not Available Not Available No t Available omeprazole 20 mg capsule,del ayed release TAKE 1 CAPSULE BY MOUTH DAILY FOR 360 DAYS. active Not Available Not Available No t Available aspirin 81 mg chewable tablet 324 mg po x 1 now 10/17 completed Not Available Not Available Not Available propranolol 20 mg tablet TAKE 1 TABLET BY MOUTH 2 TIMES DAILY FOR 180 DAYS. active Not Available Not Available No t Available fluticasone propionate 50 mcg/actuati on nasal spray,suspe nsion SPRAY TWICE IN EACH NOSTRIL DAILY 07/09 completed Not Available Not Available Not Available glipizide 5 mg tablet TAKE 1 TABLET BY MOUTH EVERY DAY WITH A MEAL 07/09 completed Not Available Not Available Not Available amoxicillin 875 mg-potassiu m clavulanate 125 mg tablet TAKE 1 TABLET BY MOUTH TWICE A DAY FOR 10 DAYS 07/09 completed Not Available Not Available Not Available Ventolin HFA 90 mcg/actuati on aerosol inhaler INHALE 2 PUFFS BY MOUTH EVERY 6 HOURS NEEDED FOR COUGH, WHEEZING OR SHORTNESS OF BREATH active Not Available Not Available No t Available FreeStyle Lite Meter kit USE DIRECTED TO CHECK BLOOD SUGAR TWICE DAILY active Not Available Not Available No t Available FreeStyle Lite Strips USE DIRECTED TO CHECK BLOOD SUGAR TWICE DAILY active Not Available Not Available No t Available cholecalcif fer (vitamin D3) 1,250 mcg (50,000 unit) capsule TAKE 1 CAPSULE BY MOUTH ONE TIME PER WEEK active Not Available Not Available No t Available [facility] with Large Mask APPLY ROUTE NEEDED FOR OTHER (TO USE WITH RESCUE INHALER). active Not Available Not Available No t Available Vitals Date Recorded Oxygen saturation Oxygen saturation in Arterial blood by Pulse oximetry Heart rate Body weight Respiratory rate Body mass index (BMI) Body height Body temperature Heart rate Pain severity - 0-10 verbal numeric rating [Score] - Reported Systolic And Diastolic Systolic And Diastolic Provider Name and Address Organization Details Last Updated DateTime 3 100 % 100 % 128 /min 79598.9 9 g 22 /min 41.2 kg/m2 152.4 cm 98 [degF] 96 /min 0 152/100 mm[Hg] 132/65 mm[Hg] CHIVO BORJAS PA - [facility] 3 12:23:03 Date Recorded Body height Body mass index (BMI) Body weight Oxygen saturation Oxygen saturation in Arterial blood by Pulse oximetry Heart rate Respiratory rate Body temperature Systolic And Diastolic Provider Name and Address Organization Details Last Updated DateTime 3 152.4 cm 41.2 kg/m2 83838.9 9 g 98 % 98 % 98 /min 18 /min 98.6 [degF] 121/85 mm[Hg] LISANDRO CARBAJALTyrone PA - [facility] 3 12:41:52 Social History Question Answer Notes LastModified by [employer] Details LastModified Time Tobacco Smoking Status Current Every Day Smoker CHIVO radford PA - [facility] 07/09/2022 12:20:38 How Much Tobacco Do You Smoke? 0.5 PPD Information not available 07/09/2022 Have You Recently Traveled Abroad? No Information not available 07/09/2022 Sex: Unknown Functional Status Question Answer Note LastModified by [employer] Details LastModified Time Do you use any illicit or recreational drugs? No Information not available 07/09/2022 Do you or have you ever used any other forms of tobacco or nicotine? No Information not available 07/09/2022 What is your level of alcohol consumption? None Information not available 07/09/2022 Mental Status None recorded. Family History Nothing Reported. Medical History No medical history recorded. Gynecological History Statement/Question Response Date of LMP 09/17/2022 Is there any chance of ? No LMP Approximate Obstetrics History GPAL:G 0 P 0 0 0 0 Immunizations Vaccine Type Date Status Note Provider Nam e and Address Organization Details Recorded Time Influenza, MDCK, quadrivalent, PF 1 completed CHIVO radford PA [facility] 07/09/2022 12:15:45 COVID-19, mRNA, LNP-S, PF, 100 mcg/0.5mL dose or 50 mcg/0.25mL dose 1 completed CHIVO DEPINTO null, PA - [facility] 07/09/2022 12:15:45 COVID-19, mRNA, LNP-S, PF, 100 mcg/0.5mL dose or 50 mcg/0.25mL dose 1 completed CHIVO DEPINTO null, PA - [facility] 07/09/2022 12:15:45 COVID-19, mRNA, LNP-S, PF, 100 mcg/0.5mL dose or 50 mcg/0.25mL dose 2 completed CHIVO DEPINTO null, PA - [facility] 07/09/2022 12:15:45 pneumococcal polysaccharide PPV23 1 completed CHIVO DEPINTO null, PA - [facility] 07/09/2022 12:15:45 Past Encounters Encounter ID Performer Location Encounter Start Date Encounter Closed Date Diagnosis/Indication Diagnosis SNOMED-CT Code Diagnosis ICD10 Code Diagnosis IMO Codes Diagnosis Note [id number] [facility] [place] [address] 04/14/2021 12:27:36 04/14/2021 13:32:44 [id number] [facility] [place] [address] 08/18/2020 10:29:32 08/18/2020 13:03:45 [id number] [facility] [place] [address] 06/15/2020 13:50:13 06/15/2020 17:12:49 [id number] [place] [address] 01/21/2021 14:29:13 01/21/2021 16:41:56 [id number] Keagan Ramsey, DO [address] [facility] [place], [place] [address] 07/09/2022 12:05:08 07/09/2022 12:43:47 Chest pain 93864671 R07.9 asa 324 po x 1 nowEKGed eval per EMS/ACLS [id number] Wendy Murray MD [address] [facility] [place], [place] [address] 10/17/2022 12:08:35 10/17/2022 13:17:56 Cellulitis of skin 262940030 L03.90 Abscess of skin and/or subcutaneous tissue 70259839 L02.91 Uncontroll ed type 2 diabetes mellitus 135952683 E11.65 Health Concerns Section Related Observation LastModified by Organization Detai ls LastModified Time None Recorded Concern Status LastModified by Organization Details LastModified Time None Recorded Advance Directives Directive None Recorded Payers Insurance Date Sequence Insurance Name Policy Number Policy Mauricio Covered Member ID Mauricio Member ID Guarantor Name 10/17/2022 1 [facility] [facility] [place] (MEDICAID HMO) [place] Ayesha Humphrey [id number] Ayesha Humphrey Notes Date Note Type Note Provider Name and Address Organization Details Recorded Time 07/09/2022 text/html Chest PainReport ed by [email or web address] yo female c/o 1 d chest pain and SOB, dizziness,c/o racing heart for weeks. 185/135 this morning at home.Shaking and feeling like chest got crushed /something sitting on chest/fluttering and pains. last propanolol Monday It doesnt work for me last ICS weeks ago last ventolin MondayNo DM meds x weeks no radiationno arm pain, numbness or tinglingcomes and goesno change with exertion/rest+ SOB/GODINEZ+ palpitationsno LE edemano diaphoresisno fatigueno N/Vsmoker+ h/o asthma and DM+ fam h/o CADdid not try any meds for the pain + h/o anxietyROS as noted in the HPI Keagan Ramsey, DO [address] [place], [address], [place] - [facility] 07/09/2022 12:41:37 10/17/2022 text/html AbscessReported by PatientHPIFor quality, patient reportspainful,tendern ess,warmth,swelling,re dness, anddrainage. For context, patient reportshistory of chronic abscessesandobese. For associated symptoms, patient reportschillsbut reportsno fever,no red streaking,no malaise,no headache, andno enlarged lymph nodes. For location, patient reportsthighs(right upper inner thigh.). For onset/timing, patient reportsgradual. For severity, patient reportsworsening. For duration, (2 days.).36 year old female with hx DM2, recurrent skin abscesses presenting for evaluation of increasing pain, redness and swelling in her right upper inner thigh region getting worse for the past 2 days. Last night she developed purulent drainage. She has had some chills and sweats. The patient is not currently on any medication for her diabetes and does not routinely check her blood sugars. She is awaiting an appointment with an diesel technology instructor. Wendy Murray MD [address] [place], [address], [facility] 10/17/2022 14:29:38 OBGyn Episode No OBEpisode recorded.
--- OUTSIDE RECORDS SUMMARY | 2024-12-12 14:57 | XMS_ITS | Encounter Summary ---
Author Organization [facility] Address [address] [place] [address] Care Team Providers Care Protective Signal Operations Supervisor Name Role Phone John Liang MD Primary Care Provider [phone] Encounter Details Date Type Department Care Team ([facility] Contact Info) Description 11/06/2024 Results Follow-Up Internal Medicine - [place] [address] [facility] [address] [place] [phone] Sarah Bowles MA Social History Tobacco Use Types Packs/Day Years Used Date Smoking Tobacco: Every Day Cigarettes 0.5 26.8 Started: 03/02/1998 Smokeless Tobacco: Never Alcohol Use [...] care for your loved ones. For example, childcare worker or elderly care for an older adult? [...] as of this encounter Plan of Treatment Upcoming Encounters Date Type Department Care Team (Late st Contact Info) Description 12/16/2024 1:30 PM EST Office Visit Internal Medicine - [place] [address] [facility] [address] [place] [id number] Ariana Barnett NP [address] [facility] [address] [place] [address] documented as of this encounter Visit Diagnoses Not on filedocumented in this encounter Additional Health Concerns Assessment Noted Time PHQ-9 Depression Total Score: 17 025 8:46 AM EDT documented as of this encounter Care Teams Protective Signal Operations Supervisor Relationship Specialty Start Date End Date John Liang MD [address] [facility] [address] [place] [address] PCP - General 06/02/22 documented as of this encounter
--- OUTSIDE RECORDS SUMMARY | 2024-12-12 14:57 | XMS_ITS | Clinical Summary ---
Author Organization [address] [place] [address] [place] [phone] Phone Care Team Providers Care Enterprise Business Architect Name Role Phone John Liang MD Primary Care Provider [phone] Allergies Active Allergy Reactions Criticality Noted Date Comments Azithromycin GI intolerance 12/21/2023 Medications FREESTYLE [place] [facility] [place] one lancet to check blood sugar twice a day 2 Active fluticasone propionate (FLONASE) 50 mcg/actuation nasal spray [place] twice in each nostril daily. 2 Active cholecalciferol (VITAMIN D-3) 50 mcg (2,000 unit) capsule Take 1 capsule (2,000 Units total) by mouth. 4 Active medical supply, miscellaneous (MISCELLANEOUS MEDICAL SUPPLY [facility] [place] To take sugars twice daily 2 Active blood-glucose meter kit Use one device to check blood sugar twice a day 2 Active blood sugar diagnostic (FreeStyle Lite Strips) test strip USE DIRECTED TO CHECK BLOOD SUGAR TWICE DAILY 3 Active ibuprofen (ADVIL ORAL) Take by mouth as needed. Active Autolet (Accu-Chek Soft Dev Lancets) lancing device To take sugars twice daily 2 Active inhaler, assist devices (BREATHERITE VALVED MDI CHAMBER [facility] [place] 1 Each by Does not apply route as needed for Other (to use with rescue inhaler). 2 Active albuterol HFA (PROAIR HFA ; PROVENTIL HFA ; VENTOLIN HFA) 90 mcg/actuation inhalerIndication s:Mild intermittent asthma without complication,Palp itations,Type 2 diabetes mellitus with obesity Inhale 2 puffs by mouth every 4 (four) hours if needed for wheezing. 6.7 g 3 5 Active aspirin 81 mg EC tablet Take 1 tablet (81 mg total) by mouth 1 (one) time each day. 30 tablet 11 5 026 Active Additional Information Patient not taking.Reported on 06/08/2024 fluconazole (DIFLUCAN) 150 mg tablet Take 1 tablet by mouth once. Take second tablet 3 days later if symptoms persist. 2 tablet 5 Active propranoloL (INDERAL) 40 mg tablet TAKE 1 TABLET BY MOUTH TWICE A DAY 180 tablet 1 5 Active atorvastatin (LIPITOR) 10 mg tablet TAKE 1 TABLET BY MOUTH EVERY DAY 90 tablet 1 5 Active fluticasone-salme terol (Advair Diskus) 250-50 mcg/dose diskus inhaler Inhale 1 puff by mouth 2 (two) times a day. RINSE MOUTH AFTER USE 60 each 3 5 Active Active Problems Problem Noted Date Diagnosed Date [...] Mild intermittent asthma without complication Diabetic neuropathy ([facility] V24, [facility] V28) 1 02/24/2019 Anxiety and depression 02/19/2019 Gastroesophageal reflux disease 02/19/2019 Migraine 02/19/2019 Bipolar 1 disorder ([facility] V24, [facility] V28) Type 2 diabetes mellitus with obesity 12/14/2018 Overview (11/06/2024): 11/06/24 Regulatory IMO Update Fibromyalgia 12/14/2018 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 [address] [place] [address] Sarah Bowles MA from Last [...] Record ed Within the last 3 months, shannon connelly many times did you visit the emergency [...] for your loved ones. For example, child welfare social worker or elderly care for an older [...] 03/18/2024 10:00 AM EST Plan of Treatment Upcoming Encounters Date Type Department Care Team (Late st Contact Info) Description 12/16/2024 1:30 PM EST Office Visit Internal Medicine - [place] [address] [facility] [address] [place] [phone] Ariana Barnett NP [address] [facility] [address] [place] [address] Health Maintenance Due Date Last Done Comments [...] with obesity (CMS/HCC V24, CMS/HCC V28) CBC WITH AUTO DIFFERENTIAL Routine 10/17/2024 11:48 AM EDT Mild intermittent asthma without complication Palpitations Type 2 diabetes mellitus with obesity (CMS/HCC V24, CMS/HCC V28) CBC AND DIFFERENTIAL Routine 10/17/2024 11:48 AM EDT Mild intermittent asthma without complication Palpitations Type 2 diabetes mellitus with obesity (CMS/HCC V24, CMS/HCC V28) VITAMIN D 25 HYDROXY Routine 10/17/2024 11:48 AM EDT Mild intermittent asthma without complication Palpitations Type 2 diabetes mellitus with obesity (CMS/HCC V24, CMS/HCC V28) Brain TIA Fibromyalgia HEMOGLOBIN A1C Routine 07/24/2023 LIPID PANEL Routine 07/24/2023 ANNUAL BMP BLOOD TEST Routine 04/24/2023 DIABETES EYE EXAM Routine 01/17/2023 URINE ALBUMIN CREATININE RATIO Routine 06/02/2022 from Last 3 Months or Most Recently Relevant to Health Maintenance Results * (ABNORMAL) CBC auto differential (10/17/2024 11:48 AM EDT) [facility] Signature WBC 8.7 4.8 - 10.8 K/mcL LAB HEMETOLOGY METHOD 10/17/2024 2:20 PM EDT [facility] RBC 5.10(H) 3.80 - 4.80 M/mcL LAB HEMETOLOGY METHOD 10/17/2024 2:20 PM EDT [facility] Hemoglobin 14.8 11.5 - 16.0 g/dL LAB HEMETOLOGY METHOD 10/17/2024 2:20 PM EDT [facility] Hematocrit 44.0 35.0 - 47.0 % LAB HEMETOLOGY METHOD 10/17/2024 2:20 PM EDT [facility] MCV 86.4 79.0 - 98.0 FL LAB HEMETOLOGY METHOD 10/17/2024 2:20 PM EDT [facility] MCH 29.1 27.0 - 32.0 pcg LAB HEMETOLOGY METHOD 10/17/2024 2:20 PM EDT [facility] MCHC 33.6 32.0 - 37.0 g/dL LAB HEMETOLOGY METHOD 10/17/2024 2:20 PM EDT [facility] RDW 12.9 11.0 - 15.0 % LAB HEMETOLOGY METHOD 10/17/2024 2:20 PM EDT [facility] Platelets 300 130 - 400 K/mcL LAB HEMETOLOGY METHOD 10/17/2024 2:20 PM EDT [facility] MPV 10.2 7.0 - 11.0 FL LAB HEMETOLOGY METHOD 10/17/2024 2:20 PM EDT [facility] NRBC 0.0 <1.0 % LAB HEMETOLOGY METHOD 10/17/2024 2:20 PM EDT [facility] NRBC Absolute 0.00 <0.10 K/mcL LAB HEMETOLOGY METHOD 10/17/2024 2:20 PM EDT [facility] Neutrophils Relative 48.5 % LAB HEMETOLOGY METHOD 10/17/2024 2:20 PM EDT [facility] Lymphocytes Relative 44.0 % LAB HEMETOLOGY METHOD 10/17/2024 2:20 PM EDT [facility] Monocytes Relative 4.1 % LAB HEMETOLOGY METHOD 10/17/2024 2:20 PM EDT [facility] Eosinophils Relative 2.7 % LAB HEMETOLOGY METHOD 10/17/2024 2:20 PM EDT [facility] Basophils Relative 0.5 % LAB HEMETOLOGY METHOD 10/17/2024 2:20 PM EDT [facility] Immature Granulocytes Relative 0.2 % LAB HEMETOLOGY METHOD 10/17/2024 2:20 PM EDT [facility] Neutrophils Absolute 4.23 1.50 - 7.00 K/mcL LAB HEMETOLOGY METHOD 10/17/2024 2:20 PM EDT [facility] Lymphocytes Absolute 3.84 1.00 - 5.00 K/mcL LAB HEMETOLOGY METHOD 10/17/2024 2:20 PM EDT [facility] Monocytes Absolute 0.36 0.20 - 1.00 K/mcL LAB HEMETOLOGY METHOD 10/17/2024 2:20 PM EDT [facility] Eosinophils Absolute 0.24 0.00 - 0.50 K/mcL LAB HEMETOLOGY METHOD 10/17/2024 2:20 PM EDT [facility] Basophils Absolute 0.04 0.00 - 0.20 K/mcL LAB HEMETOLOGY METHOD 10/17/2024 2:20 PM EDT [facility] Immature Granulocytes Absolute 0.02 0.00 - 0.03 K/mcL LAB HEMETOLOGY METHOD 10/17/2024 2:20 PM EDT [facility] Blood Venous blood specimen / Unknown Venipuncture / Unknown 10/17/2024 11:48 AM EDT 10/17/2024 11:48 AM EDT us John Liang MD LAB BLOOD ORDERABLES Final Resul t Performing Organization Address [facility] Co de Phone Number [facility] [address] [place] [address], [place] [phone] * Vitamin D 25 hydroxy (10/17/2024 11:48 AM EDT) Vit D, 25-Hydroxy 31.6 30.0 - 80.0 ng/mL LAB CHEMISTRY METHOD 10/17/2024 2:36 PM EDT [facility] Blood Venous blood specimen / Unknown Venipuncture / Unknown 10/17/2024 11:48 AM EDT 10/17/2024 11:48 AM EDT us John Liang MD LAB BLOOD ORDERABLES Final Resul t Performing Organization Address [facility] de Phone Number [facility] [address] [place] [address], [place] [phone] * Thyroid stimulating hormone (10/17/2024 11:48 AM EDT) TSH 2.65 0.40 - 4.00 mcIU/mL LAB CHEMISTRY METHOD 10/17/2024 2:36 PM EDT [facility] Blood Venous blood specimen / Unknown Venipuncture / Unknown 10/17/2024 11:48 AM EDT 10/17/2024 11:48 AM EDT us John Liang MD LAB BLOOD ORDERABLES Final Resul t [facility] [address] [place] [address], * (ABNORMAL) Hemoglobin A1c (07/24/2023) [facility] Hemoglobin A1C 8.2(A) <=6.5 % Blood Venous blood specimen / Unknown Result [facility] Provider LAB BLOOD ORDERABLES Lucy l Result * (ABNORMAL) Lipid panel (07/24/2023) [facility] LDL/HDL Ratio 4 0 - 4 Triglycerides 119 0 - 150 mg/dL Cholesterol 228(A) 0 - 200 mg/dL HDL 57 >=40 mg/dL LDL Cholesterol 148(A) 0 - 100 mg/dL Blood Venous blood specimen / Unknown Result [facility] LAB BLOOD ORDERABLES Lucy l Result * Annual BMP Blood Test (04/24/2023) [facility] Annual BMP Blood Test Abstracted Result [facility] HEALTH MAINTENANCE Final Result * Diabetes Eye Exam (01/17/2023) [facility] Diabetes: Annual Retina Eye Exam Abstracted Result [facility] Historical Provider HEALTH MAINTENANCE Final Result * Urine Albumin Creatinine Ratio (06/02/2022) [facility] Urine Albumin Creatinine Ratio Abstracted Result [facility] Historical Provider HEALTH MAINTENANCE Final Result from Last 3 Months or Most Recently Relevant to Health Maintenance Insurance [facility] [employer] Care Teams Enterprise Business Architect Relationship Specialty Start Date End Date John Liang MD [address] [address] PCP - General 06/02/22
== END 2024-12-12 13:06 | disposition home or self-care (01) ==
LOC: HO.HSM 11:58
PROVIDERS: PCP Internal Medicine; Visit Provider Nurse Practitioner
DX: G47.33 Obstructive sleep apnea (adult) (pediatric) (principal); G25.81 Restless legs syndrome; R06.83 Snoring; M54.81 Occipital neuralgia; R53.83 Other fatigue; M79.18 Myalgia, other site
CPT/HCPCS: 99214

== ENCOUNTER → 2024-12-12 11:58 | Outpatient (BNVA) | payer OTHER, SELFPAY | PROVIDERS: PCP Internal Medicine; Visit Provider Nurse Practitioner | DX: G44.85 Primary stabbing headache (principal); G43.009 Migraine without aura, not intractable, without status migrainosus; M79.18 Myalgia, other site; M54.81 Occipital neuralgia; R06.83 Snoring; G47.33 Obstructive sleep apnea (adult) (pediatric); G25.81 Restless legs syndrome; Z79.899 Other long term (current) drug therapy | CPT/HCPCS: 99212 ==